=== PATIENT | female | born 1990 | race Caucasian/White ===

== ENCOUNTER 2018-07-27 00:30 | Emergency (ER) | payer SELFPAY ==
--- OUTSIDE RECORDS SUMMARY | 2018-07-27 00:33 | XMS REPORT ---
:1990 Author Organization [facility] Address [address] [place] [address] Dr. Enriquez [address] [place] [id number] Care Team Providers Name Role Phone Unavailable Unavailable Unavailable Problems This patient has no known problems. Allergies, Adverse Reactions, Alerts This patient has no known allergies or adverse reactions. Medications This patient has no known medications.
[2018-07-27] MEDS ORDERED: NA CHLORIDE 0.9% 1,000 ML ONE (01:15)
[2018-07-27] MEDS ORDERED: ONDANSETRON 4 MG/2 ML VIAL ONE (01:16)
[2018-07-27] MEDS ORDERED: FAMOTIDINE 20 MG/2 ML VIAL IV ONE (01:16)
[2018-07-27 01:36] LABS: Absolute Lymphocytes (CBC) 1.1 K/uL (0.7-4.9); Absolute Monocytes 0.4 K/uL (0.1-1.3); Absolute Neutrophil 7.4 K/uL (1.8-8.0); Basophils % 0.3 % (0-1.3); Eosinophils % 1.3 % (0-4.4); Hematocrit 42.6 % (36.0-45.0); Lymphocytes % 11.9 % (15.3-44.8); MPV 8.3 fL (7.6-11.3); RBC Red Blood Cell Count 4.81 M/uL (3.86-4.86)
[2018-07-27 01:48] LABS: ALT/SGPT 19 U/L (12-78); AST/SGOT 10 U/L (15-37); Albumin 3.9 g/dL (3.4-5.0); Alkaline Phosphatase 59 U/L (45-117); BUN Blood Urea Nitrogen 12 mg/dL (7-18); Bicarbonate 24 mmol/L (21-32); Bilirubin Direct 0.1 mg/dL (0-0.2); Bilirubin Total 0.6 mg/dL (0.2-1.0); Glucose Level 98 mg/dL (74-106); Lipase 83 U/L (73-393); Magnesium 1.7 mg/dL (1.8-2.4); Potassium 3.4 mmol/L (3.5-5.1); Protein, Total 7.5 g/dL (6.4-8.2); Sodium Level 137 mmol/L (136-145)
[2018-07-27] MEDS ORDERED: MAGNESIUM SULFATE 1 gm IVPB 1 GM/100 ML BAG IV ONE (02:13)
[2018-07-27] MEDS ORDERED: POTASSIUM 25 MEQ EFFERV TAB ONE (02:13)
--- NOTE | 2018-07-27 02:26 | EDPHYS ---
Physician Documentation [facility] Name: Sheri Cutler Age: 28 yrs Sex: Female : 1990 Arrival Date: 07/27/2018 Time: 00:33 Bed 2 Private MD: Georgina Tamayo C ED Physician Gume Jasmine HPI: 07/27 00:55 This 28 yrs old Female presents to ER via Ambulatory with complaints of cp Nausea/Vomiting/Diarrhea. 00:55 The patient presents to the emergency department with nausea, that is moderate, cp vomiting, that is intermittent, diarrhea, that is intermittent. Onset: The symptoms/episode began/occurred 2 day(s) ago. Possible causes: unknown. Associated signs and symptoms: Pertinent positives: chills, Pertinent negatives: abdominal pain, constipation, fever, GI bleeding. Severity of symptoms: in the emergency department the symptoms are unchanged despite home interventions. 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 - Social history:: Smoking status: Patient uses tobacco products, smokes one-half pack cigarettes per day. - Ebola Screening: : No symptoms or risks identified at this time. ROS: 01:00 Constitutional: Positive for chills, poor PO intake, Negative for body aches, fever. cp 01:00 Eyes: Negative for injury, pain, redness, and discharge. cp 01:00 ENT: Negative for drainage from ear(s), ear pain, sore throat, difficulty swallowing, difficulty handling secretions. 01:00 Cardiovascular: Negative for chest pain, edema, palpitations. 01:00 Respiratory: Negative for cough, shortness of breath, wheezing. 01:00 Abdomen/GI: Positive for nausea, vomiting, and diarrhea, constipation, black/tarry stool, rectal bleeding, Negative for abdominal pain. 01:00 Back: Negative for pain at rest, pain with movement, radiated pain. 01:00 : Negative for urinary symptoms, vaginal bleeding, vaginal discharge. 01:00 Skin: Negative for cellulitis, rash. 01:00 Neuro: Negative for altered mental status, headache, weakness. 01:00 All other systems are negative. Exam: 01:05 Constitutional: The patient appears in no acute distress, alert, awake, non-toxic, well cp developed, well nourished. 01:05 Head/Face: Normocephalic, atraumatic. Eyes: Pupils equal round and reactive to light, cp extra-ocular motions intact. Lids and lashes normal. Conjunctiva and sclera are non-icteric and not injected. Cornea within normal limits. Periorbital areas with no swelling, redness, or edema. ENT: Nares patent. No nasal discharge, no septal abnormalities noted. Tympanic membranes are normal and external auditory canals are clear. Oropharynx with no redness, swelling, or masses, exudates, or evidence of obstruction, uvula midline. Mucous membranes moist. Chest/axilla: Normal chest wall appearance and motion. Nontender with no deformity. No lesions are appreciated. Cardiovascular: Regular rate and rhythm with a normal S1 and S2. No gallops, murmurs, or rubs. Normal PMI, no JVD. No pulse deficits. Respiratory: Lungs have equal breath sounds bilaterally, clear to auscultation and percussion. No rales, rhonchi or wheezes noted. No increased work of breathing, no retractions or nasal flaring. Abdomen/GI: Soft, non-tender, with normal bowel sounds. No distension or tympany. No guarding or rebound. No evidence of tenderness throughout. Skin: Warm, dry with normal turgor. Normal color with no rashes, no lesions, and no evidence of cellulitis. Vital Signs: 00:50 BP 103 / 64; Pulse 96; Resp 18; Temp 98.2; Pulse Ox 98% on R/A; Weight 86.18 kg; Height ea 5 ft. 5 in. (165.10 cm); 02:56 BP 108 / 63; Pulse 92; Resp 18; Temp 98.2; Pulse Ox 99% on R/A; Pain 0/10; ao 00:50 Body Mass Index 31.62 (86.18 kg, 165.10 cm) ea MDM: 07/26 02:25 Counseling: I had a detailed discussion with the patient and/or guardian regarding: the cp historical points, exam findings, and any diagnostic results supporting the discharge/admit diagnosis, lab results, to return to the emergency department if symptoms worsen or persist or if there are any questions or concerns that arise at home. 07/27 00:44 Patient medically screened. cp 02:22 Data reviewed: vital signs, nurses notes, lab test result(s), and as a result, I will cp discharge patient. 02:25 Response to treatment: the patient's symptoms have markedly improved after treatment, cp VSS. Nausea markedly improved and vomiting resolved. Abdominal exam negative for tenderness. Will discharge to home for continued monitoring. 07/27 00:49 Order name: Basic Metabolic Panel; Complete Time: :57 cp 07/27 01:58 Interpretation: Normal except: K 3.4. cp 07/27 00:49 Order name: CBC with Diff; Complete Time: :57 cp 07/27 01:58 Interpretation: Normal except: BRODIE% 82.5; LYM% 11.9. cp 07/27 00:49 Order name: Creatinine for Radiology; Complete Time: :57 cp 07/27 00:49 Order name: Hepatic Function; Complete Time: :57 cp 07/27 00:49 Order name: Lipase; Complete Time: :57 cp 07/27 00:49 Order name: Magnesium; Complete Time: :57 cp 07/27 00:49 Order name: IV Saline Lock; Complete Time: 01:09 cp 07/27 01:22 Order name: Urine Dipstick--Ancillary (enter results); Complete Time: 02:45 ds4 07/27 01:22 Order name: Urine --Ancillary (enter results); Complete Time: 02:45 ds4 07/27 00:49 Order name: Labs collected and sent; Complete Time: 01:09 cp 07/27 00:49 Order name: Urine Dipstick-Ancillary (obtain specimen); Complete Time: 01:16 cp 07/27 00:49 Order name: Urine Test (obtain specimen); Complete Time: 01:20 cp Administered Medications: 01:15 Drug: Pepcid 20 mg Route: IVP; Site: right antecubital; ak1 02:00 Follow up: Response: No adverse reaction ea 01:15 Drug: NS 0.9% 1000 ml Route: IV; Rate: 1 bolus; Site: right antecubital; ak1 03:02 Follow up: IV Status: Completed infusion; IV Intake: 1000ml ao 01:16 Drug: Zofran 4 mg Route: IVP; Site: right antecubital; ak1 02:11 Follow up: Response: No adverse reaction ea 02:11 Drug: Magnesium Sulfate 1 grams Route: IVPB; Infused Over: 30 mins; Site: right ea antecubital; 03:03 Follow up: IV Status: Completed infusion; IV Intake: 100ml ao 02:11 Drug: Potassium Effervescent Tablet 25 mEq Route: PO; ea 03:03 Follow up: Response: No adverse reaction ao Disposition: 07/27/18 02:25 Discharged to Home. Impression: Nausea and vomiting, Diarrhea, unspecified. - Condition is Stable. - Discharge Instructions: Food Choices to Help Relieve Diarrhea, Adult, Diarrhea, Adult, Nausea and Vomiting, Adult. - Prescriptions for Zofran 4 mg Oral Tablet - take 1 tablet by ORAL route every 12 hours As needed; 20 tablet. Lomotil 2.5- 0.025 mg Oral Tablet - take 1 tablet by ORAL route every 6 hours As needed; 20 tablet. - Medication Reconciliation Form, Thank You Letter, Antibiotic Education, Prescription Opioid Use, Work release form form. - Follow up: Private Physician; When: 2 - 3 days; Reason: Recheck today's complaints. - Problem is new. - Symptoms have improved. Addendum: 07/30/2018 07:07 Co-signature as Attending Physician, Gume Jasmine MD I agree with the assessment and c montes plan of care. Signatures: Dispatcher [employer] Gume Florian MD MD cha Krenek, Amber RN RN ak1 Gume Gill PA PA cp Ortiz, Alex, RN RN ao Antunez, Elena RN NANCIE donovan Corrections: (The following items were deleted from the chart) 07/27 03:02 02:25 07/27/2018 02:25 Discharged to Home. Impression: Nausea and vomiting; Diarrhea, ao unspecified. Condition is Stable. Forms are Work release form, Medication Reconciliation Form, Thank You Letter, Antibiotic Education, Prescription Opioid Use. Follow up: Private Physician; When: 2 - 3 days; Reason: Recheck today's complaints. Problem is new. Symptoms have improved. cp
--- NOTE | 2018-07-27 02:26 | ER ---
Nurse's Notes [facility] Name: Sheri Cutler Age: 28 yrs Sex: Female : 1990 Arrival Date: 07/27/2018 Time: 00:33 Bed 2 Private MD: Georgina Tamayo C Diagnosis: Nausea and vomiting;Diarrhea, unspecified Presentation: 07/27 00:47 Presenting complaint: Patient states: Pt reports ABD cramping, nausea, vomiting and ea diarrhea since Monday. Transition of care: patient was not received from another setting of care. Onset of symptoms was July 27, 2018. Risk Assessment: Do you want to hurt yourself or someone else? Patient reports no desire to harm self or others. Initial Sepsis Screen: Does the patient meet any 2 criteria? No. Patient's initial sepsis screen is negative. Does the patient have a suspected source of infection? No. Patient's initial sepsis screen is negative. Care prior to arrival: Medication(s) given: Imodium \T\ 1800. 00:47 Method Of Arrival: Ambulatory ea 00:47 Acuity: ARNULFO 3 ea Triage Assessment: 00:50 General: Appears uncomfortable, Behavior is calm, cooperative, appropriate for age. ea Pain: Complains of pain in abdomen. EENT: No signs and/or symptoms were reported regarding the EENT system. Neuro: Level of Consciousness is awake, alert, obeys commands, Oriented to person, place, time, situation. Cardiovascular: Patient's skin is warm and dry. Respiratory: Airway is patent Respiratory effort is even, unlabored, Respiratory pattern is regular, symmetrical. GI: Abdomen is non-distended, Bowel sounds present X 4 quads. Reports lower abdominal pain, upper abdominal pain, cramping, diarrhea, intolerance of fluids, intolerance of food, nausea, vomiting. Derm: Skin is pink, warm \T\ dry. 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 - Social history:: Smoking status: Patient uses tobacco products, smokes one-half pack cigarettes per day. - Ebola Screening: : No symptoms or risks identified at this time. Screenin:55 Abuse screen: Denies threats or abuse. Nutritional screening: No deficits noted. ea Tuberculosis screening: No symptoms or risk factors identified. Fall Risk None identified. Assessment: 00:57 Reassessment: see triage assessment. GI: Abdomen is non-distended, Bowel sounds present ea X 4 quads. Abd is soft and non tender X 4 quads. 02:37 Reassessment: Patient schedule to be discharge. Patient currently running magnesium and ao will be D/C after Magnesium is complete. Vital Signs: 00:50 BP 103 / 64; Pulse 96; Resp 18; Temp 98.2; Pulse Ox 98% on R/A; Weight 86.18 kg; Height ea 5 ft. 5 in. (165.10 cm); 02:56 BP 108 / 63; Pulse 92; Resp 18; Temp 98.2; Pulse Ox 99% on R/A; Pain 0/10; ao 00:50 Body Mass Index 31.62 (86.18 kg, 165.10 cm) ea ED Course: 00:33 Patient arrived in ED. am2 00:33 Georgina Tamayo FNP is Private Physician. am2 00:43 Gume Gill PA is PHCP. cp 00:44 Gume Jasmine MD is Attending Physician. cp 00:47 Tameka Cox, NANCIE is Primary Nurse. ea 00:48 Triage completed. ea 00:48 Patient has correct armband on for positive identification. Bed in low position. Call ea light in reach. Side rails up X2. 00:48 Arm band placed on right wrist. Patient placed in an exam room, on a stretcher, on ea pulse oximetry. 00:55 Inserted saline lock: 20 gauge in right antecubital area, using aseptic technique. ds4 Blood collected. 01:22 Basic Metabolic Panel Sent. ds4 01:22 CBC with Diff Sent. ds4 01:22 Creatinine for Radiology Sent. ds4 01:22 Magnesium Sent. ds4 01:22 Hepatic Function Sent. ds4 01:22 Lipase Sent. ds4 02:15 Urine --Ancillary (enter results) Sent. ds4 02:15 Urine Dipstick--Ancillary (enter results) Sent. ds4 03:01 No provider procedures requiring assistance completed. IV discontinued, intact, ao bleeding controlled, No redness/swelling at site. Pressure dressing applied. Administered Medications: 01:15 Drug: Pepcid 20 mg Route: IVP; Site: right antecubital; ak1 02:00 Follow up: Response: No adverse reaction ea 01:15 Drug: NS 0.9% 1000 ml Route: IV; Rate: 1 bolus; Site: right antecubital; ak1 03:02 Follow up: IV Status: Completed infusion; IV Intake: 1000ml ao 01:16 Drug: Zofran 4 mg Route: IVP; Site: right antecubital; ak1 02:11 Follow up: Response: No adverse reaction ea 02:11 Drug: Magnesium Sulfate 1 grams Route: IVPB; Infused Over: 30 mins; Site: right ea antecubital; 03:03 Follow up: IV Status: Completed infusion; IV Intake: 100ml ao 02:11 Drug: Potassium Effervescent Tablet 25 mEq Route: PO; ea 03:03 Follow up: Response: No adverse reaction ao Intake: 03:02 IV: 1000ml; Total: 1000ml. ao 03:03 IV: 100ml; Total: 1100ml. ao Outcome: 02:25 Discharge ordered by . cp 03:01 Discharged to home ambulatory. ao 03:01 Condition: stable 03:01 Discharge instructions given to patient, Instructed on discharge instructions, follow up and referral plans. Demonstrated understanding of instructions, follow-up care, medications, Prescriptions given X 2. 03:02 Patient left the ED. ao Signatures: Miguel Angel Quintero ds4 Lesley Gordon RN RN ak1 Gume Gill PA PA cp Ortiz, Alex RN Alondra Peguero Elena RN NANCIE donovan
[2018-07-27 02:33] LABS: Urine Blood NEGATIVE (NEG); Urine Glucose NEGATIVE (NEG); Urine Protein NEGATIVE (NEG); Urine Specific Gravity 1.015 (1.005-1.030); Urine pH 5.5 (5.0-7.0)
== END 2018-07-27 03:02 | disposition home or self-care (01) ==
LOC: ER 00:30
DX: R19.7 Diarrhea, unspecified (principal); F17.210 Nicotine dependence, cigarettes, uncomplicated; Z88.8 Allergy status to other drugs, medicaments and biological substances
CPT/HCPCS: 36415; 80048; 80076; 81003; 81025; 83690; 83735; 85025; 96361; 96365; 96375; 99284; J2405; J3475; J7030

== ENCOUNTER 2018-11-02 23:05 | Emergency (ER) | payer SELFPAY ==
--- OUTSIDE RECORDS SUMMARY | 2018-11-02 23:07 | XMS REPORT ---
:1990 [facility] Address [address] [place] [address] Dr. Enriquez [address] [place] [id number] Care Team Providers Name Role Phone Unavailable Unavailable Unavailable Problems This patient has no known problems. Allergies, Adverse Reactions, Alerts This patient has no known allergies or adverse reactions. Medications This patient has no known medications.
--- NOTE | 2018-11-03 | ER ---
Nurse's Notes [facility] Name: Sheri Cutler Age: 28 yrs Sex: Female : 1990 Arrival Date: 11/02/2018 Time: 23:07 Bed 16 Private MD: Diagnosis: Conjunctivitis Presentation: 11/02 23:12 Presenting complaint: Patient states: I woke up this morning and noticed my eye was ed1 swelling. It hurts and its getting worse. Transition of care: patient was not received from another setting of care. Onset of symptoms was November 02, 2018. Risk Assessment: Do you want to hurt yourself or someone else? Patient reports no desire to harm self or others. Initial Sepsis Screen: Does the patient meet any 2 criteria? No. Patient's initial sepsis screen is negative. Does the patient have a suspected source of infection? No. Patient's initial sepsis screen is negative. Care prior to arrival: Medication(s) given: Claritin. 23:12 Method Of Arrival: Ambulatory ed1 23:12 Acuity: ARNULFO 4 ed1 Triage Assessment: 23:14 General: Appears uncomfortable, Behavior is calm, cooperative. Pain: Complains of pain ed1 in left eye Pain currently is 7 out of 10 on a pain scale. Quality of pain is described as itchy. EENT: Sclera/Cornea are reddened in left eye. 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 - Social history:: Smoking status: Patient uses tobacco products, smokes one pack cigarettes per day. - Ebola Screening: : Patient negative for fever greater than or equal to 101.5 degrees Fahrenheit, and additional compatible Ebola Virus Disease symptoms Patient denies exposure to infectious person Patient denies travel to an Ebola-affected area in the 21 days before illness onset No symptoms or risks identified at this time. Screenin:45 Abuse screen: Denies threats or abuse. Nutritional screening: No deficits noted. jb4 Tuberculosis screening: No symptoms or risk factors identified. Fall Risk None identified. Assessment: 23:45 General: Appears in no apparent distress. uncomfortable, Behavior is calm, cooperative, jb4 appropriate for age. Pain: Complains of pain in left eye Pain does not radiate. Pain currently is 7 out of 10 on a pain scale. Quality of pain is described as scratchy Pain began 1 day ago. Neuro: Level of Consciousness is awake, alert, obeys commands, Oriented to person, place, time, situation. Cardiovascular: Patient's skin is warm and dry. Respiratory: Airway is patent Respiratory effort is even, unlabored, Respiratory pattern is regular, symmetrical. GI: No signs and/or symptoms were reported involving the gastrointestinal system. : No signs and/or symptoms were reported regarding the genitourinary system. EENT: Sclera/Cornea are reddened in outer aspect of conjuctiva of left eye, iris of left eye and inner aspect of conjunctiva of left eye Denies blurred vision. Derm: Skin is intact, Skin is pink, warm \T\ dry. Musculoskeletal: Circulation, motion, and sensation intact. 11/03 00:31 Reassessment: Patient appears in no apparent distress at this time. Patient and/or jb4 family updated on plan of care and expected duration. Pain level reassessed. Patient is alert, oriented x 3, equal unlabored respirations, skin warm/dry/pink. Vital Signs: 11/02 23:14 BP 113 / 62; Pulse 74; Resp 18; Temp 98.2(O); Pulse Ox 99% on R/A; Weight 77.11 kg; ed1 Height 5 ft. 4 in. (162.56 cm); Pain 7/10; 11/03 00:31 BP 127 / 68; Pulse 77; Resp 16; Pulse Ox 100% on R/A; jb4 11/02 23:14 Body Mass Index 29.18 (77.11 kg, 162.56 cm) ed1 Visual Acuity: 00:08 Left Eye Visual acuity 20/40, Pupil size 4 mm, Normal, React To Light, Reactive To jb4 Accomodation; Right Eye Visual acuity 20/40, Pupil size 4 mm, Normal, React To Light, Reactive To Accomodation; Both Eyes Visual acuity 20/25; Without Lenses; Pt reports normally having to wear glasses. ED Course: 11/02 23:07 Patient arrived in ED. es 23:13 Triage completed. ed1 23:14 Arm band placed on right wrist. ed1 23:17 Timbo Perry, RN is Primary Nurse. jb4 23:32 [facility]C [facility]. snw 23:32 Gume Jasmine MD is Attending Physician. snw 23:45 Patient has correct armband on for positive identification. Bed in low position. Call jb4 light in reach. Side rails up X 1. Pulse ox on. NIBP on. 23:58 Tatianna Neves MD is Referral Physician. snw 11/03 00:31 No provider procedures requiring assistance completed. Patient did not have IV access jb4 during this emergency room visit. Administered Medications: 00:21 Drug: Tobramycin Ointment (0.3 %) 1 inches Route: Ophthalmic; Site: left eye; jb4 00:30 Follow up: Response: No adverse reaction; Medication administered at discharge. jb4 Outcome: 11/02 23:59 Discharge ordered by . snw 11/03 00:31 Discharged to home ambulatory, with significant other. jb4 Condition: stable Discharge instructions given to patient, significant other, Instructed on discharge instructions, follow up and referral plans. medication usage, Demonstrated understanding of instructions, follow-up care, medications, Prescriptions given X 1. 00:32 Patient left the ED. jb4 Signatures: Kristi Merino FNP-C REFRACTORY F[employer]NACE DESIGNER-Csn Bernarda Dumont Erika, RN RN ed1 Timbo Perry, RN RN jb4
--- NOTE | 2018-11-03 00:01 | EDPHYS ---
Physician Documentation [facility] Name: Sheri Cutler Age: 28 yrs Sex: Female : 1990 Arrival Date: 11/02/2018 Time: 23:07 Bed 16 Private MD: ED Physician Gume Jasmine HPI: 11/03 00:05 This 28 yrs old Female presents to ER via Ambulatory with complaints of Eye snw Problem. 00:05 The patient is experiencing redness, The patient sustained None. to the left eye, snw caused by an unknown mechanism. Onset: The symptoms/episode began/occurred suddenly, this morning. Duration: the symptoms are continuous. Aggravated by rubbing. Associated signs and symptoms: Pertinent positives: None. Severity of symptoms: At their worst the symptoms were moderate. The patient has not experienced similar symptoms in the past. It is unknown whether or not the patient has recently seen a physician. tetanus immunization up to date. 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 - Social history:: Smoking status: Patient uses tobacco products, smokes one pack cigarettes per day. - Ebola Screening: : Patient negative for fever greater than or equal to 101.5 degrees Fahrenheit, and additional compatible Ebola Virus Disease symptoms Patient denies exposure to infectious person Patient denies travel to an Ebola-affected area in the 21 days before illness onset No symptoms or risks identified at this time. ROS: 11/03 00:05 Constitutional: Negative for fever, chills, and weight loss, ENT: Negative for injury, snw pain, and discharge, Neck: Negative for injury, pain, and swelling, Cardiovascular: Negative for chest pain, palpitations, and edema, Respiratory: Negative for shortness of breath, cough, wheezing, and pleuritic chest pain, Abdomen/GI: Negative for abdominal pain, nausea, vomiting, diarrhea, and constipation, Back: Negative for injury and pain, : Negative for injury, bleeding, discharge, and swelling, MS/Extremity: Negative for injury and deformity, Skin: Negative for injury, rash, and discoloration, Neuro: Negative for headache, weakness, numbness, tingling, and seizure, Psych: Negative for depression, anxiety, suicide ideation, homicidal ideation, and hallucinations. Eyes: Positive for redness, tearing, of the outer aspect of conjuctiva of left eye and inner aspect of conjunctiva of left eye, Negative for blurry vision, foreign body sensation, pain, sunken appearance, vision loss, visual disturbance. Exam: 00:02 Constitutional: This is a well developed, well nourished patient who is awake, alert, snw and in no acute distress. Head/Face: Normocephalic, atraumatic. ENT: Nares patent. No nasal discharge, no septal abnormalities noted. Tympanic membranes are normal and external auditory canals are clear. Oropharynx with no redness, swelling, or masses, exudates, or evidence of obstruction, uvula midline. Mucous membranes moist. Neck: Trachea midline, no thyromegaly or masses palpated, and no cervical lymphadenopathy. Supple, full range of motion without nuchal rigidity, or vertebral point tenderness. No Meningismus. Chest/axilla: Normal chest wall appearance and motion. Nontender with no deformity. No lesions are appreciated. Cardiovascular: Regular rate and rhythm with a normal S1 and S2. No gallops, murmurs, or rubs. Normal PMI, no JVD. No pulse deficits. Respiratory: Lungs have equal breath sounds bilaterally, clear to auscultation and percussion. No rales, rhonchi or wheezes noted. No increased work of breathing, no retractions or nasal flaring. Abdomen/GI: Soft, non-tender, with normal bowel sounds. No distension or tympany. No guarding or rebound. No evidence of tenderness throughout. Back: No spinal tenderness. No costovertebral tenderness. Full range of motion. Skin: Warm, dry with normal turgor. Normal color with no rashes, no lesions, and no evidence of cellulitis. MS/ Extremity: Pulses equal, no cyanosis. Neurovascular intact. Full, normal range of motion. Neuro: Awake and alert, GCS 15, oriented to person, place, time, and situation. Cranial nerves II-XII grossly intact. Motor strength 5/5 in all extremities. Sensory grossly intact. Cerebellar exam normal. Normal gait. 00:02 Eyes: Periorbital structures: appear normal, Pupils: no acute changes, Extraocular movements: no acute changes, Conjunctiva: injected, in the left eye, Anterior chamber: normal, Lids and lashes: appear normal. Vital Signs: 11/02 23:14 BP 113 / 62; Pulse 74; Resp 18; Temp 98.2(O); Pulse Ox 99% on R/A; Weight 77.11 kg; ed1 Height 5 ft. 4 in. (162.56 cm); Pain 7/10; 11/03 00:31 BP 127 / 68; Pulse 77; Resp 16; Pulse Ox 100% on R/A; jb4 11/02 23:14 Body Mass Index 29.18 (77.11 kg, 162.56 cm) ed1 Visual Acuity: 00:08 Left Eye Visual acuity 20/40, Pupil size 4 mm, Normal, React To Light, Reactive To jb4 Accomodation; Right Eye Visual acuity 20/40, Pupil size 4 mm, Normal, React To Light, Reactive To Accomodation; Both Eyes Visual acuity 20/25; Without Lenses; Pt reports normally having to wear glasses. MDM: 11/02 23:33 Patient medically screened. [facility] 11/03 00:03 Data reviewed: vital signs, nurses notes. Data interpreted: Pulse oximetry: on room air snw is 99 %. Interpretation: normal. Counseling: I had a detailed discussion with the patient and/or guardian regarding: the historical points, exam findings, and any diagnostic results supporting the discharge/admit diagnosis, the need for outpatient follow up, to return to the emergency department if symptoms worsen or persist or if there are any questions or concerns that arise at home. Special discussion: Based on the history and exam findings, there is no indication for further emergent testing or inpatient evaluation. I discussed with the patient/guardian the need to see the opthamologist for further evaluation of the symptoms, I discussed with the patient/guardian the need to see the primary care provider for further evaluation of the symptoms. 11/03 00:03 Order name: Visual Acuity; Complete Time: 00:08 snw Administered Medications: 00:21 Drug: Tobramycin Ointment (0.3 %) 1 inches Route: Ophthalmic; Site: left eye; jb4 00:30 Follow up: Response: No adverse reaction; Medication administered at discharge. jb4 Disposition: 11/02/18 23:59 Discharged to Home. Impression: Conjunctivitis. - Condition is Stable. - Medication Reconciliation Form, Thank You Letter, Antibiotic Education, Prescription Opioid Use, Work release form form. - Follow up: Tatianna Neves MD; When: 2 - 3 days; Reason: Recheck today's complaints, Continuance of care, Re-evaluation by your physician. Follow up: Emergency Department; When: As needed; Reason: Worsening of condition. Addendum: 11/05/2018 06:41 Co-signature as Attending Physician, Gume Jasmine MD I agree with the assessment and c montes plan of care. Signatures: Gume Jasmine MD MD cha Therrien, Shelly, TELEVISION OPERATOR-C TELEVISION OPERATOR-Csnw Muriel Salazar, RN RN ed1 Timbo Perry RN RN jb4 Corrections: (The following items were deleted from the chart) 11/03 00:32 11/02 23:59 11/02/2018 23:59 Discharged to Home. Impression: Conjunctivitis. Condition jb4 is Stable. Forms are Medication Reconciliation Form, Thank You Letter, Antibiotic Education, Prescription Opioid Use. Follow up: Tatianna Neves; When: 2 - 3 days; Reason: Recheck today's complaints, Continuance of care, Re-evaluation by your physician. Follow up: Emergency Department; When: As needed; Reason: Worsening of condition. snw
[2018-11-03] MEDS ORDERED: TOBRAMYCIN SULF 0.3% OPTH OINT ONE (00:25)
== END 2018-11-03 00:32 | disposition home or self-care (01) ==
LOC: ER 23:05
DX: H10.9 Unspecified conjunctivitis (principal); F17.210 Nicotine dependence, cigarettes, uncomplicated; Z88.8 Allergy status to other drugs, medicaments and biological substances
CPT/HCPCS: 99283

== ENCOUNTER 2018-12-11 08:19 | Emergency (ER) | payer SELFPAY ==
--- OUTSIDE RECORDS SUMMARY | 2018-12-11 08:23 | XMS REPORT ---
:1990 [facility] Address [address] [place] [address] Dr. Enriquez [address] [place] [id number] Care Team Providers Name Role Phone Unavailable Unavailable Unavailable Problems This patient has no known problems. Allergies, Adverse Reactions, Alerts This patient has no known allergies or adverse reactions. Medications This patient has no known medications.
[2018-12-11] MEDS ORDERED: KETOROLAC 30 MG/ML INJ ONE (11:39)
[2018-12-11] MEDS ORDERED: DIPHENHYDRAMINE 25 MG TAB/CAP ONE (11:39)
[2018-12-11] MEDS ORDERED: ONDANSETRON 4 MG (ODT) TAB ONE (11:40)
--- NOTE | 2018-12-11 11:53 | ER ---
Nurse's Notes [facility] Name: Sheri Cutler Age: 28 yrs Sex: Female : 1990 Arrival Date: 12/11/2018 Time: 08:22 Bed 19 Private MD: Diagnosis: Headache Presentation: 12/11 08:50 Presenting complaint: Patient states: Monday dx with UTI, put on abx, yesterday around iw 4 started getting headache and hot and cold spells. 08:50 Method Of Arrival: Ambulatory iw 08:53 Transition of care: patient was not received from another setting of care. Onset of iw symptoms was December 11, 2018. Risk Assessment: Do you want to hurt yourself or someone else? Patient reports no desire to harm self or others. Initial Sepsis Screen: Does the patient meet any 2 criteria? No. Patient's initial sepsis screen is negative. Does the patient have a suspected source of infection? No. Patient's initial sepsis screen is negative. Care prior to arrival: None. 08:53 Acuity: ARNULFO 4 iw Triage Assessment: 09:00 Headache History: The patient has had previous headaches and this one is similar to bp previous episodes. General: Appears in no apparent distress. comfortable, Behavior is cooperative, appropriate for age, anxious. Pain: Complains of pain in head Pain currently is 7 out of 10 on a pain scale. Pain began suddenly, Also complains of nausea. EENT: No deficits noted. Neuro: Level of Consciousness is awake, alert, obeys commands, Oriented to person, place, time, situation, Appropriate for age. Cardiovascular: No deficits noted. Respiratory: Airway is patent Respiratory effort is even, unlabored, Respiratory pattern is regular, symmetrical. GI: Reports nausea. : Reports burning with urination. Derm: No deficits noted. Musculoskeletal: Circulation, motion, and sensation intact. Range of motion: intact in all extremities. 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 - Social history:: Smoking status: Patient uses tobacco products, smokes one-half pack cigarettes per day. - Ebola Screening: : Patient negative for fever greater than or equal to 101.5 degrees Fahrenheit, and additional compatible Ebola Virus Disease symptoms Patient denies exposure to infectious person Patient denies travel to an Ebola-affected area in the 21 days before illness onset No symptoms or risks identified at this time. Screenin:52 Abuse screen: Denies threats or abuse. Denies injuries from another. Nutritional bp screening: No deficits noted. Tuberculosis screening: No symptoms or risk factors identified. Fall Risk None identified. Assessment: 09:00 General: SEE TRIAGE NOTE. bp 11:33 Reassessment: ALL CURRENT ORDERS COMPLETED, DISPO PENDING. bp 12:20 Reassessment: PT D/C HOME AMBULATORY WITH FAMILY, DX WITH HEADACHE. bp Vital Signs: 08:52 BP 132 / 71; Pulse 90; Resp 16; Temp 98.7(O); Pulse Ox 99% on R/A; Weight 81.65 kg; iw Height 5 ft. 5 in. (165.10 cm); Pain 5/10; 11:34 BP 113 / 76; Pulse 63; Resp 15; Pulse Ox 100% ; bp 12:21 BP 107 / 66; Pulse 67; Resp 14; Temp 98; Pulse Ox 98% ; bp 08:52 Body Mass Index 29.95 (81.65 kg, 165.10 cm) iw [place] Coma Score: 11:55 Eye Response: spontaneous(4). Verbal Response: oriented(5). Motor Response: obeys tw4 commands(6). Total: 15. ED Course: 08:22 Patient arrived in ED. mr 08:50 Jacinto May MD is Attending Physician. tw4 08:53 Triage completed. iw 08:53 Arm band placed on. iw 09:23 Alberto Garcia RN is Primary Nurse. bp 09:52 Patient has correct armband on for positive identification. Bed in low position. Call bp light in reach. Side rails up X2. 12:21 No provider procedures requiring assistance completed. Patient did not have IV access bp during this emergency room visit. Administered Medications: 11:25 Drug: TORadol 60 mg Route: IM; Site: left gluteus; bp 12:18 Follow up: Response: Pain is decreased bp 11:25 Drug: Benadryl 25 mg Route: PO; bp 12:18 Follow up: Response: Pain is decreased bp 11:25 Drug: Zofran 4 mg Route: PO; bp 12:18 Follow up: Response: No adverse reaction; Pain is decreased bp Outcome: 11:52 Discharge ordered by tw4 12:21 Discharged to home ambulatory, with family. bp 12:21 Condition: stable 12:21 Discharge instructions given to patient, Instructed on discharge instructions, follow up and referral plans. medication usage, Demonstrated understanding of instructions, follow-up care, medications, Prescriptions given X 2. 12:22 Patient left the ED. bp Signatures: Jaylyn King Irene, RN NANCIE iw Alberto Garcia RN RN Jacinto Browning, MD MERCHANT tw4
--- NOTE | 2018-12-11 11:53 | EDPHYS ---
Physician Documentation [facility] Name: Sheri Cutler Age: 28 yrs Sex: Female : 1990 Arrival Date: 12/11/2018 Time: 08:22 Bed 19 Private MD: ED Physician Jacinto May HPI: 12/11 11:55 This 28 yrs old Female presents to ER via Ambulatory with complaints of tw4 Headache, Fever, Nausea. 11:55 The patient complains of pain to the forehead. The patient describes the headache as tw4 aching. Onset: The symptoms/episode began/occurred today. Associated signs and symptoms: Pertinent positives: nausea. Severity of symptoms: At its worst the pain was moderate, in the emergency department the pain is unchanged. The symptoms are alleviated by nothing. the symptoms are aggravated by nothing. The patient has not experienced similar symptoms in the past. 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 - Social history:: Smoking status: Patient uses tobacco products, smokes one-half pack cigarettes per day. - Ebola Screening: : Patient negative for fever greater than or equal to 101.5 degrees Fahrenheit, and additional compatible Ebola Virus Disease symptoms Patient denies exposure to infectious person Patient denies travel to an Ebola-affected area in the 21 days before illness onset No symptoms or risks identified at this time. ROS: 11:55 Constitutional: Negative for fever, chills, and weight loss, Eyes: Negative for injury, tw4 pain, redness, and discharge, Cardiovascular: Negative for chest pain, palpitations, and edema, Respiratory: Negative for shortness of breath, cough, wheezing, and pleuritic chest pain, Abdomen/GI: Negative for abdominal pain, nausea, vomiting, diarrhea, and constipation, MS/Extremity: Negative for injury and deformity, Skin: Negative for injury, rash, and discoloration. 11:55 Neuro: Positive for headache, Negative for altered mental status, dizziness, gait disturbance, numbness, seizure activity, speech changes, syncope, tinnitus, tremor, visual changes, weakness. Exam: 11:55 Constitutional: This is a well developed, well nourished patient who is awake, alert, tw4 and in no acute distress. Head/Face: Normocephalic, atraumatic. Cardiovascular: Regular rate and rhythm with a normal S1 and S2. No gallops, murmurs, or rubs. Normal PMI, no JVD. No pulse deficits. Respiratory: Lungs have equal breath sounds bilaterally, clear to auscultation and percussion. No rales, rhonchi or wheezes noted. No increased work of breathing, no retractions or nasal flaring. Abdomen/GI: Soft, non-tender, with normal bowel sounds. No distension or tympany. No guarding or rebound. No evidence of tenderness throughout. Back: No spinal tenderness. No costovertebral tenderness. Full range of motion. MS/ Extremity: Pulses equal, no cyanosis. Neurovascular intact. Full, normal range of motion. Neuro: Awake and alert, GCS 15, oriented to person, place, time, and situation. Cranial nerves II-XII grossly intact. Motor strength 5/5 in all extremities. Sensory grossly intact. Cerebellar exam normal. Normal gait. Vital Signs: 08:52 BP 132 / 71; Pulse 90; Resp 16; Temp 98.7(O); Pulse Ox 99% on R/A; Weight 81.65 kg; iw Height 5 ft. 5 in. (165.10 cm); Pain 5/10; 11:34 BP 113 / 76; Pulse 63; Resp 15; Pulse Ox 100% ; bp 12:21 BP 107 / 66; Pulse 67; Resp 14; Temp 98; Pulse Ox 98% ; bp 08:52 Body Mass Index 29.95 (81.65 kg, 165.10 cm) iw [place] Coma Score: 11:55 Eye Response: spontaneous(4). Verbal Response: oriented(5). Motor Response: obeys tw4 commands(6). Total: 15. MDM: 08:50 Patient medically screened. tw4 11:55 Differential diagnosis: glaucoma, trigeminal neuralgia, uremia. Data reviewed: vital tw4 signs, nurses notes. Counseling: I had a detailed discussion with the patient and/or guardian regarding: the historical points, exam findings, and any diagnostic results supporting the discharge/admit diagnosis, the presence of at least one elevated blood pressure reading (>120/80) during this emergency department visit, lab results. Special discussion: I discussed with the patient/guardian in detail that at this point there is no indication for admission to the hospital. It is understood, however, that if the symptoms persist or worsen the patient needs to return immediately for re-evaluation. Administered Medications: 11:25 Drug: TORadol 60 mg Route: IM; Site: left gluteus; bp 12:18 Follow up: Response: Pain is decreased bp 11:25 Drug: Benadryl 25 mg Route: PO; bp 12:18 Follow up: Response: Pain is decreased bp 11:25 Drug: Zofran 4 mg Route: PO; bp 12:18 Follow up: Response: No adverse reaction; Pain is decreased bp Disposition: 12/11/18 11:52 Discharged to Home. Impression: Headache. - Condition is Stable. - Discharge Instructions: General Headache Without Cause. - Prescriptions for Fiorinal 50- 325-40 mg Oral Capsule - take 1 capsule by ORAL route every 4 hours As needed - not to exceed 6 capsules per day; 20 capsule. Ibuprofen 800 mg Oral Tablet - take 1 tablet by ORAL route every 8 hours As needed take with food; 30 tablet. - Work release form, Medication Reconciliation Form, Thank You Letter, Antibiotic Education, Prescription Opioid Use form. - Follow up: Private Physician; When: Upon discharge from the Emergency Department; Reason: If symptoms return, Recheck today's complaints, Continuance of care. - Problem is new. - Symptoms have improved. Signatures: Larissa Osorio, RN RN Alberto Garcia RN RN bp Jacinto May MD MD tw4 Corrections: (The following items were deleted from the chart) 12:22 11:52 12/11/2018 11:52 Discharged to Home. Impression: Headache. Condition is Stable. bp Forms are Medication Reconciliation Form, Thank You Letter, Antibiotic Education, Prescription Opioid Use. Follow up: Private Physician; When: Upon discharge from the Emergency Department; Reason: If symptoms return, Recheck today's complaints, Continuance of care. Problem is new. Symptoms have improved. tw4
== END 2018-12-11 12:22 | disposition home or self-care (01) ==
LOC: ER 08:19
DX: R51 Headache (principal); F17.210 Nicotine dependence, cigarettes, uncomplicated; Z88.8 Allergy status to other drugs, medicaments and biological substances
CPT/HCPCS: 96372; 99283

== ENCOUNTER 2019-06-24 16:01 | Emergency (ER) | payer SELFPAY ==
--- OUTSIDE RECORDS SUMMARY | 2019-06-24 16:03 | XMS REPORT ---
:1990 [facility] Address [address] [place] [address] Dr. Enriquez [address] [place] [id number] Care Team Providers Name Role Phone Unavailable Unavailable Unavailable Problems This patient has no known problems. Allergies, Adverse Reactions, Alerts This patient has no known allergies or adverse reactions. Medications This patient has no known medications.
--- NOTE | 2019-06-24 18:09 | ER ---
Nurse's Notes [facility] Name: Sheri Cutler Age: 29 yrs Sex: Female : 1990 Arrival Date: 06/24/2019 Time: 16:06 Bed 26 Private MD: Diagnosis: Influenza due to identified novel influenza A virus Presentation: 06/24 16:20 Presenting complaint: Patient states: body aches, subjective fever, congestion started sv this morning. Transition of care: patient was not received from another setting of care. Onset of symptoms was June 24, 2019. Risk Assessment: Do you want to hurt yourself or someone else? Patient reports no desire to harm self or others. Care prior to arrival: Medication(s) given: Tylenol, \T\ 1300. 16:20 Method Of Arrival: Ambulatory sv 16:20 Acuity: ARNULFO 3 sv 17:03 Initial Sepsis Screen: Does the patient meet any 2 criteria? No. Patient's initial rv sepsis screen is negative. Does the patient have a suspected source of infection? No. Patient's initial sepsis screen is negative. Historical: - Allergies: 16:21 Triaminic Chest-Nasal Congest; sv - PSHx: 16:21 ; fracture pelvis; fractured collarbone; bladder repair; left arm; sv - Immunization history:: Flu vaccine is not up to date. - Social history:: Smoking status: Patient uses tobacco products, smokes one-half pack cigarettes per day. - Ebola Screening: : No symptoms or risks identified at this time. Screenin:02 Abuse screen: Denies threats or abuse. Denies injuries from another. Nutritional rv screening: No deficits noted. Tuberculosis screening: No symptoms or risk factors identified. Fall Risk None identified. Assessment: 17:02 General: Appears in no apparent distress. comfortable, Behavior is calm, cooperative. rv Pain: Denies pain. Neuro: Level of Consciousness is awake, alert, obeys commands, Oriented to person, place, time, situation. Cardiovascular: Patient's skin is warm and dry. Respiratory: Airway is patent Breath sounds are clear bilaterally. Vital Signs: 16:20 BP 111 / 73; Pulse 94; Resp 16; Temp 99.1; Pulse Ox 100% ; Weight 90.72 kg; Height 5 sv ft. 4 in. (162.56 cm); 16:20 Body Mass Index 34.33 (90.72 kg, 162.56 cm) ED Course: 16:06 Patient arrived in ED. ag5 16:20 Triage completed. sv 16:22 Arm band placed on. sv 16:23 Brodie Luna NP is PHCP. pm1 16:23 Uzma Reynolds MD is Attending Physician. pm1 16:49 Burt Ahumada, NANCIE is Primary Nurse. rv 17:03 Patient has correct armband on for positive identification. Pulse ox on. NIBP on. rv 17:03 No provider procedures requiring assistance completed. Patient did not have IV access rv during this emergency room visit. Administered Medications: No medications were administered Outcome: 18:08 Discharge ordered by MD. pm1 18:14 Discharged to home ambulatory. rv 18:14 Condition: good 18:14 Discharge instructions given to patient, Instructed on discharge instructions, follow up and referral plans. medication usage, Demonstrated understanding of instructions, follow-up care, medications, Prescriptions given X 1. 18:15 Patient left the ED. rv Signatures: Gladys Oh, RN RN Brodie Luna, OSMAR FREIGHT AGENT pm1 Burt Ahumada, NANCIE RN Freddy Walters ag5
--- NOTE | 2019-06-24 18:09 | EDPHYS ---
Physician Documentation [facility] Name: Sheri Cutler Age: 29 yrs Sex: Female : 1990 Arrival Date: 06/24/2019 Time: 16:06 Bed 26 Private MD: ED Physician Uzma Reynolds HPI: 06/24 17:09 This 29 yrs old Female presents to ER via Ambulatory with complaints of pm1 Congestion, Fever. 17:09 The patient or guardian reports flu symptoms. Onset: The symptoms/episode pm1 began/occurred this morning. Modifying factors: The symptoms are alleviated by the symptoms are aggravated by nothing. Associated signs and symptoms: Pertinent positives: fever, sore throat, Pertinent negatives: chest pain, diarrhea, vomiting, SOB. The patient has not experienced similar symptoms in the past. The patient has not recently seen a physician. Historical: - Allergies: 16:21 Triaminic Chest-Nasal Congest; sv - PSHx: 16:21 ; fracture pelvis; fractured collarbone; bladder repair; left arm; sv - Immunization history:: Flu vaccine is not up to date. - Social history:: Smoking status: Patient uses tobacco products, smokes one-half pack cigarettes per day. - Ebola Screening: : No symptoms or risks identified at this time. ROS: 17:09 Eyes: Negative for injury, pain, redness, and discharge. pm1 17:09 ENT: Negative for injury, pain, and discharge, Neck: Negative for injury, pain, and swelling, Cardiovascular: Negative for chest pain, palpitations, and edema. 17:09 Abdomen/GI: Negative for abdominal pain, nausea, vomiting, diarrhea, and constipation, Back: Negative for injury and pain, MS/Extremity: Negative for injury and deformity, Skin: Negative for injury, rash, and discoloration, Neuro: Negative for headache, weakness, numbness, tingling, and seizure. 17:09 Constitutional: Positive for body aches, chills, fever, Negative for poor PO intake. 17:09 Respiratory: Positive for cough, Negative for shortness of breath, sputum production, wheezing. Exam: 17:09 Constitutional: This is a well developed, well nourished patient who is awake, alert, pm1 and in no acute distress. Head/Face: Normocephalic, atraumatic. Eyes: Pupils equal round and reactive to light, extra-ocular motions intact. Lids and lashes normal. Conjunctiva and sclera are non-icteric and not injected. Cornea within normal limits. Periorbital areas with no swelling, redness, or edema. ENT: Nares patent. No nasal discharge, no septal abnormalities noted. Tympanic membranes are normal and external auditory canals are clear. Oropharynx with no redness, swelling, or masses, exudates, or evidence of obstruction, uvula midline. Mucous membranes moist. Neck: Trachea midline, no thyromegaly or masses palpated, and no cervical lymphadenopathy. Supple, full range of motion without nuchal rigidity, or vertebral point tenderness. No Meningismus. Chest/axilla: Normal chest wall appearance and motion. Nontender with no deformity. No lesions are appreciated. Cardiovascular: Regular rate and rhythm with a normal S1 and S2. No gallops, murmurs, or rubs. Normal PMI, no JVD. No pulse deficits. Respiratory: Lungs have equal breath sounds bilaterally, clear to auscultation and percussion. No rales, rhonchi or wheezes noted. No increased work of breathing, no retractions or nasal flaring. Abdomen/GI: Soft, non-tender, with normal bowel sounds. No distension or tympany. No guarding or rebound. No evidence of tenderness throughout. Back: No spinal tenderness. No costovertebral tenderness. Full range of motion. Skin: Warm, dry with normal turgor. Normal color with no rashes, no lesions, and no evidence of cellulitis. MS/ Extremity: Pulses equal, no cyanosis. Neurovascular intact. Full, normal range of motion. 17:09 Neuro: Orientation: is normal, Motor: is normal, moves all fours, Gait: is steady, at a normal pace, without difficulty. Vital Signs: 16:20 BP 111 / 73; Pulse 94; Resp 16; Temp 99.1; Pulse Ox 100% ; Weight 90.72 kg; Height 5 sv ft. 4 in. (162.56 cm); 16:20 Body Mass Index 34.33 (90.72 kg, 162.56 cm) sv MDM: 16:44 Patient medically screened. pm1 18:07 Data reviewed: vital signs. Data interpreted: Pulse oximetry: on room air is 100 %. pm1 Interpretation: normal. Counseling: I had a detailed discussion with the patient and/or guardian regarding: the historical points, exam findings, and any diagnostic results supporting the discharge/admit diagnosis, lab results, the need for outpatient follow up, to return to the emergency department if symptoms worsen or persist or if there are any questions or concerns that arise at home. 06/24 16:47 Order name: Flu; Complete Time: 18:07 pm1 06/24 16:47 Order name: Strep; Complete Time: 18:07 pm1 06/24 18:10 Order name: Throat Culture EDMS Administered Medications: No medications were administered Disposition: 06/25 07:28 Co-signature as Attending Physician, Uzma Reynolds MD. ma2 Disposition: 06/24/19 18:08 Discharged to Home. Impression: Influenza due to identified novel influenza A virus. - Condition is Stable. - Discharge Instructions: Influenza, Adult. - Prescriptions for Tamiflu 75 mg Oral Capsule - take 1 tablet by ORAL route every 12 hours for 5 days; 10 tablet. - Medication Reconciliation Form, Thank You Letter, Antibiotic Education, Prescription Opioid Use form. - Follow up: Emergency Department; When: As needed; Reason: Worsening of condition. Follow up: Private Physician; When: 2 - 3 days; Reason: Recheck today's complaints, Continuance of care, Re-evaluation by your physician. - Problem is new. - Symptoms have improved. Signatures: Dispatcher [employer] EDMS Gladys Oh RN RN sv Marinas, Patrick, MULTIMEDIA AUTHOR MULTIMEDIA AUTHOR pm1 Uzma Reynolds MD MD wi2 Burt Ahumada RN RN rv Corrections: (The following items were deleted from the chart) 06/24 18:15 18:08 06/24/2019 18:08 Discharged to Home. Impression: Influenza due to identified rv novel influenza A virus. Condition is Stable. Forms are Medication Reconciliation Form, Thank You Letter, Antibiotic Education, Prescription Opioid Use. Follow up: Emergency Department; When: As needed; Reason: Worsening of condition. Follow up: Private Physician; When: 2 - 3 days; Reason: Recheck today's complaints, Continuance of care, Re-evaluation by your physician. Problem is new. Symptoms have improved. pm1
[2019-06-24 19:51] VITALS: BP 111/73; TEMP 99.1; O2SAT 100
== END 2019-06-24 18:15 | disposition home or self-care (01) ==
LOC: ER 16:01
DX: J10.1 Influenza due to other identified influenza virus with other respiratory manifestations (principal); F17.210 Nicotine dependence, cigarettes, uncomplicated; Z88.8 Allergy status to other drugs, medicaments and biological substances
CPT/HCPCS: 87070; 87081; 87804; 99283

== ENCOUNTER 2019-11-05 11:44 | Emergency (ER) | payer SELFPAY ==
--- OUTSIDE RECORDS SUMMARY | 2019-11-05 11:46 | XMS REPORT ---
:1990 Author Organization [facility] t Address [address] [place] [address] Dr. Enriquez [address] [place] [id number] Care Team Providers Name Role Phone Unavailable Unavailable Unavailable Problems This patient has no known problems. Allergies, Adverse Reactions, Alerts This patient has no known allergies or adverse reactions. Medications This patient has no known medications.
--- NOTE | 2019-11-05 13:28 | RAD REPORT ---
EXAM DESCRIPTION: US - UPPER EXTREMITY VENOUS UNILATE - 11/05/2019 1:06 pm CLINICAL HISTORY: /left arm swelling. COMPARISON: None. FINDINGS: Left internal jugular vein, left subclavian vein, left axillary vein, left brachial vein, left cephalic, left basilic,veins demonstrate phasic signal. The veins are compressible. Doppler demo nstrates good flow. . IMPRESSION: No sonographic evidence of thrombus involving the left upper extremity veins.
--- NOTE | 2019-11-05 13:36 | ER ---
Nurse's Notes [facility] Name: Sheri Cutler Age: 29 yrs Sex: Female : 1990 Arrival Date: 11/05/2019 Time: 11:48 Bed 18 Private MD: Diagnosis: Cellulitis of left upper limb Presentation: 11/04 12:03 Chief complaint: Patient states: Left arm pain for 1 week. States she was doing a lot ll1 of yard work the days before the pain started. Pain and swelling to elbow and upper arm now. Coronavirus screen: Proceed with normal triage. Patient denies a cough. Patient denies shortness of breath or difficulty breathing. Patient denies measured and/or subjective temperature greater than 100.4F prior to today's visit. Patient denies travel on a cruise ship or to a country the [facility] currently lists as an affected area. Patient denies contact with known and/or suspected case of COVID-19. Ebola Screen: Patient denies travel to an Ebola-affected area in the 21 days before illness onset. Initial Sepsis Screen: Does the patient meet any 2 criteria? No. Patient's initial sepsis screen is negative. Does the patient have a suspected source of infection? No. Patient's initial sepsis screen is negative. Risk Assessment: Do you want to hurt yourself or someone else? Patient reports no desire to harm self or others. Onset of symptoms was October 29, 2019. 12:03 Method Of Arrival: Ambulatory ll1 12:03 Acuity: ARNULFO 4 ll1 Historical: - Allergies: 12:00 Triaminic Chest-Nasal Congest; hb - PSHx: 12:00 ; fractured collarbone; fracture pelvis; bladder repair; left arm; hb - Immunization history:: Adult Immunizations unknown. - Social history:: Smoking status: Patient reports the use of cigarette tobacco products, smokes one-half pack cigarettes per day, Patient/guardian denies using alcohol, street drugs. Screenin:13 Abuse screen: Denies threats or abuse. Denies injuries from another. Nutritional ph screening: No deficits noted. Tuberculosis screening: No symptoms or risk factors identified. Fall Risk None identified. Assessment: 12:47 General: Appears in no apparent distress. Behavior is calm, cooperative, appropriate ph for age. Pain: Complains of pain in left arm. Neuro: Level of Consciousness is awake, alert, obeys commands, Oriented to person, place, time, situation. Cardiovascular: Capillary refill < 3 seconds in bilateral fingers Patient's skin is warm and dry. Respiratory: Airway is patent Respiratory effort is even, unlabored. Derm: Skin is intact, is healthy with good turgor, Skin is pink, warm \T\ dry. Musculoskeletal: Circulation, motion, and sensation intact. Range of motion: intact in all extremities. Vital Signs: 12:03 BP 134 / 80; Pulse 87; Resp 17; Temp 98.7; Pulse Ox 100% ; ll1 ED Course: 11:48 Patient arrived in ED. mr 12:01 Arm band placed on Patient placed in an exam room, on a stretcher. 12:03 Lynette Rouse, RN is Primary Nurse. ph 12:06 Triage completed. ll1 12:10 Nlisa Spence FNP-C is [facility]. kb 12:10 Irvin Zhou MD is Attending Physician. kb 12:14 Patient has correct armband on for positive identification. Bed in low position. Call ph light in reach. Side rails up X 1. Pulse ox on. NIBP on. Door closed. Noise minimized. Warm blanket given. 12:48 No provider procedures requiring assistance completed. Patient did not have IV access ph during this emergency room visit. 12:58 UPPER EXTREMITY VENOUS UNILATE In Process Unspecified. EDMS Administered Medications: No medications were administered Outcome: 13:36 Discharge ordered by MD. kb 13:46 Discharged to home ambulatory. ph 13:46 Condition: good 13:46 Discharge instructions given to patient, Instructed on discharge instructions, follow up and referral plans. medication usage, Demonstrated understanding of instructions, follow-up care, medications, Prescriptions given X 1. 13:47 Patient left the ED. ph Signatures: Dispatcher [employer] EDMS Nilsa Spence FNP-C FNP-Ckb Jaylyn King Lynette Rouse RN RN Jaz Wilson RN RN hb Lewis, Lynsay, RN RN 1
--- NOTE | 2019-11-05 13:37 | EDPHYS ---
Physician Documentation [facility] Name: Sheri Cutler Age: 29 yrs Sex: Female : 1990 Arrival Date: 11/05/2019 Time: 11:48 Bed 18 Private MD: ED Physician Irvin Zhou HPI: 11/04 13:31 This 29 yrs old Female presents to ER via Ambulatory with complaints of Arm kb Pain. 13:31 The patient or guardian complains of pain, that is acute, swelling, redness, warmth. kb The complaints affect the left upper arm. 13:32 Context: The problem was sustained at home, resulted from lifting or pulling. Onset: kb The symptoms/episode began/occurred 1 week(s) ago. Treatment prior to arrival includes: no previous treatment. Modifying factors: The symptoms are alleviated by nothing. the symptoms are aggravated by nothing. Associated signs and symptoms: Pertinent positives: erythema, pain, swelling, warmth, Pertinent negatives: decreased range of motion. Severity of symptoms: At their worst the symptoms were moderate, in the emergency department the symptoms are unchanged. The patient has not experienced similar symptoms in the past. The patient has not recently seen a physician. Pt reports she was lifting a lot last week and had bilateral arm pain. States the right arm got better, but the left has gotten worse. REports redness, warmth and swelling to bicep. Historical: - Allergies: 12:00 Triaminic Chest-Nasal Congest; hb - PSHx: 12:00 ; fractured collarbone; fracture pelvis; bladder repair; left arm; hb - Immunization history:: Adult Immunizations unknown. - Social history:: Smoking status: Patient reports the use of cigarette tobacco products, smokes one-half pack cigarettes per day, Patient/guardian denies using alcohol, street drugs. ROS: 13:30 Constitutional: Negative for fever, chills, and weight loss, Neck: Negative for injury, kb pain, and swelling, Cardiovascular: Negative for chest pain, palpitations, and edema, Respiratory: Negative for shortness of breath, cough, wheezing, and pleuritic chest pain, Abdomen/GI: Negative for abdominal pain, nausea, vomiting, diarrhea, and constipation, Back: Negative for injury and pain, Neuro: Negative for headache, weakness, numbness, tingling, and seizure. 13:30 MS/extremity: Positive for erythema, pain, swelling, warmth, of the left upper arm. Exam: 13:30 Constitutional: This is a well developed, well nourished patient who is awake, alert, kb and in no acute distress. Head/Face: Normocephalic, atraumatic. Neck: Trachea midline, no thyromegaly or masses palpated, and no cervical lymphadenopathy. Supple, full range of motion without nuchal rigidity, or vertebral point tenderness. No Meningismus. Chest/axilla: Normal chest wall appearance and motion. Nontender with no deformity. No lesions are appreciated. Cardiovascular: Regular rate and rhythm with a normal S1 and S2. No gallops, murmurs, or rubs. Normal PMI, no JVD. No pulse deficits. Respiratory: Lungs have equal breath sounds bilaterally, clear to auscultation and percussion. No rales, rhonchi or wheezes noted. No increased work of breathing, no retractions or nasal flaring. Abdomen/GI: Soft, non-tender, with normal bowel sounds. No distension or tympany. No guarding or rebound. No evidence of tenderness throughout. Back: No spinal tenderness. No costovertebral tenderness. Full range of motion. Neuro: Awake and alert, GCS 15, oriented to person, place, time, and situation. Cranial nerves II-XII grossly intact. Motor strength 5/5 in all extremities. Sensory grossly intact. Cerebellar exam normal. Normal gait. 13:30 Musculoskeletal/extremity: Extremities: grossly normal except: noted in the left upper arm: erythema, pain, swelling, tenderness, ROM: intact in all extremities, Circulation is intact in all extremities. Sensation intact. Vital Signs: 12:03 BP 134 / 80; Pulse 87; Resp 17; Temp 98.7; Pulse Ox 100% ; ll1 MDM: 12:10 Patient medically screened. kb 13:30 Data reviewed: vital signs, nurses notes. Data interpreted: Pulse oximetry: on room air kb is 100 %. Interpretation: normal. Counseling: I had a detailed discussion with the patient and/or guardian regarding: the historical points, exam findings, and any diagnostic results supporting the discharge/admit diagnosis, radiology results, the need for outpatient follow up, a family practitioner, to return to the emergency department if symptoms worsen or persist or if there are any questions or concerns that arise at home. 11/04 12:41 Order name: UPPER EXTREMITY VENOUS UNILATE; Complete Time: 13:30 EDMS Administered Medications: No medications were administered Disposition: 19:09 Co-signature as Attending Physician, Irvin Zhou MD Available for consultation in ps1 the ED. . Disposition: 11/05/19 13:36 Discharged to Home. Impression: Cellulitis of left upper limb. - Condition is Stable. - Discharge Instructions: Cellulitis, Adult, [id number]. - Prescriptions for Bactrim DS 800- 160 mg Oral Tablet - take 1 tablet by ORAL route every 12 hours for 7 days; 14 tablet. - Medication Reconciliation Form, Thank You Letter, Antibiotic Education, Prescription Opioid Use form. - Follow up: Emergency Department; When: As needed; Reason: Worsening of condition. Follow up: Private Physician; When: 2 - 3 days; Reason: Recheck today's complaints, Continuance of care, Re-evaluation by your physician. Signatures: Dispatcher [employer] [facility] Nilsa Spence, MELISSA-Randee RIM TECHNICIAN-Lynette Chaparro, RN RN Jaz Wilson, RN RN Irvin Cooper MD MD ps1 Corrections: (The following items were deleted from the chart) 12:41 12:16 Extremity Venous Uni [email or web address] ordered. [facility] 13:47 13:36 11/05/2019 13:36 Discharged to Home. Impression: Cellulitis of left upper limb. ph Condition is Stable. Forms are Medication Reconciliation Form, Thank You Letter, Antibiotic Education, Prescription Opioid Use. Follow up: Emergency Department; When: As needed; Reason: Worsening of condition. Follow up: Private Physician; When: 2 - 3 days; Reason: Recheck today's complaints, Continuance of care, Re-evaluation by your physician. kb
[2019-11-05 14:36] VITALS: BP 134/80; TEMP 98.7; O2SAT 100
== END 2019-11-05 13:47 | disposition home or self-care (01) ==
LOC: ER 11:44
DX: L03.114 Cellulitis of left upper limb (principal); F17.210 Nicotine dependence, cigarettes, uncomplicated; Z88.8 Allergy status to other drugs, medicaments and biological substances
CPT/HCPCS: 93971; 99283